=== PATIENT | female | born 1990 | race Two or more races ===

== ENCOUNTER 2021-12-22 21:55 | Emergency (ER) | payer MEDICAID ==
[~2021-12-22] VITALS: Ht 165.1 cm; Wt 160.0 kg
[2021-12-22 21:55] VITALS: BP 122/67
[2021-12-22] MEDS ORDERED: EPINEPHrine HCL 1 MG/10 ML SYRG ONE (21:58)
[2021-12-22] MEDS ORDERED: diphenhdrAMINE HCL 50 MG/1 ML VL IV ONE (22:00)
[2021-12-22] MEDS ORDERED: FAMOTIDINE (10MG/ML) 2ML VL IV ONE (22:00)
[2021-12-22] MEDS ORDERED: EPINEPHrine HCL 1 MG/1 ML AMP IM ONE (22:00)
[2021-12-22] MEDS ORDERED: DexAMETHasone SOD PHOS 10MG/1ML VIAL INJ IV ONE (22:00)
[2021-12-22] MEDS ORDERED: EPINEPHrine HCL 1 MG/1 ML AMP ONE (22:02)
[2021-12-22] MEDS ORDERED: EPIN0.1516 IJ (23:35)
== END 2021-12-23 00:10 | disposition home or self-care (01) ==
LOC: ER 21:55
DX: T78.40XA Allergy, unspecified, initial encounter (principal); R07.89 Other chest pain; X58.XXXA Exposure to other specified factors, initial encounter
CPT/HCPCS: 96372; 96374; 96375; 99284; J0171; J1100; J1200; J3490